=== PATIENT | male | born 1995 | race Caucasian/White ===

== ENCOUNTER 2018-04-23 12:34 | Emergency (ER) | payer OTHER ==
[2018-04-23 12:37] VITALS: BP 138/88
[2018-04-23] MEDS ORDERED: LET GEL TOPICAL 1 EA SYR TP ONE (12:40)
[2018-04-23] MEDS ORDERED: SKIN ADHESIVE (DERMABOND) 1 EACH TP ONE (13:16)
--- NOTE | 2018-04-23 13:17 | EDPHY ---
General Time Seen by Provider: 04/23/18 12:40 Narrative: CLINICAL IMPRESSION: Left upper eyelid laceration ASSESSMENT/PLAN: 23-year-old incarcerated male presents to the emergency department with [place] [employer] after he was playing basketball at correction and another player's head impacted his right upper eyelid. He had no loss of consciousness. No clinical signs of open globe injury, hyphema, orbital blowout fracture, or subconjunctival hemorrhage. Patient has a small laceration to the right upper eyelid be low the brow line. He has requested skin glue for this which was applied. Tetanus reported as up-to-date. Wound care discussed, signs and symptoms of infection reviewed, warning signs return to ED sooner alignment discharge. DIFFERENTIAL DIAGNOSIS: includes but not limited to laceration of tendon or vascular structure, underlying fracture, laceration with retained FB ED PROCECURES: Laceration Repair Verbal consent obtained by patient. Risks discussed, including but not limited to infection, pain, retained foreign body, need for additional repair, poor cosmetic result, tendon damage, nerve damage, poor wound healing, vascular damage. Alternatives to repair discussed. [place] protocol used to establish correct patient, procedure, equipment, system support analyst, and site. Anesthesia obtained by topical application. Anesthetized with let. Laceration location right upper eyelid, length 1 cm, depth 2 mm, Repair type simple. Patient was prepped and draped in usual sterile fashion. Hemostasis achieved with direct pressure. Wound explored through full range of motion and entire depth of wound probed and visualized with gloved finger. No suspicion for nerve damage, tendon damage, underlying fracture, vascular damage, foreign body, or contamination. Area was cleansed with Shur-Clens and irrigated with sterile saline as per protocol. No foreign body or material removed. Repair method skin glue. Well aligned, closely approximated. wound was dressed with Band-Aid. Patient tolerated well with no immediate complications. Wound care: Clean and dry x 24 hours, gently clean with soap and water, cover with topical antibiotic ointment/bandage. CHIEF COMPLAINT: Laceration HPI: 23-year-old incarcerated male presents to the emergency department with [employer] for evaluation of a laceration to the right upper eyelid. Patient reports he was playing basketball today when another player's head impacted his right upper eyelid. He had no loss of consciousness, denies headache, dizziness , vertigo, vision changes, neck pain, upper extremity weakness or tingling. He reports tetanus is up-to-date. He was not given anything prior to arrival. PAST MEDICAL HISTORY: None reported Pertinent Past Surgical History: None reported Social History: Currently incarcerated REVIEW OF SYSTEMS: All other systems negative Constitutional: No fever, no chills Musculoskeletal: No deformity, no joint pain Skin: Laceration to right upper eyelid Neurological: No sensory loss or weakness, 2 point discrimination intact. PHYSICAL EXAM: General Appearance: Alert, oriented, appropriate for age, cooperative, NAD, well hydrated, non-toxic appearing, VSS, no hypoxia. Neurological: Alert and oriented x 3 Eye: No evidence of hyphema, open globe injury, subconjunctival hemorrhage. EOMs intact bilaterally. PERRLA. Skin: 1 cm horizontally oriented laceration to right upper eyelid just below brow line Musculoskeletal: Full range of motion of the neck with no midline pain. No upper extremity radiculopathy. MEDICAL DECISION MAKING: Patient was seen independently. Secondary supervising physician at time of evaluation was Dr. Paige. Diagnosis: Right upper eyelid laceration. New, requires workup Summary: See assessment and plan for summary of ED visit Patient Progress improved. - History Smoking Status: Current every day smoker - Objective Vital Signs: Initial Vital Signs Temperature (C) 36.6 C 04/23/18 12:36 Heart Rate 55 L 04/23/18 12:36 Respiratory Rate 16 04/23/18 12:36 Blood Pressure 138/88 H 04/23/18 12:36 O2 Sat (%) 98 04/23/18 12:36 O2 Delivery Mode Room Air Allergies/Adverse Reactions: No Known Allergies Allergy (Unverified 04/23/18 12:36) Home Medications: Medication Instructions Recorded NK [No Known Home Meds] 04/23/18 Medications Given: Discontinued Medications Tetracaine/Epinephrine/Lidocaine (Let Gel Topical) 1 ea TP EDNOW ONE Stop: 04/23/18 12:41 Last Admin: 04/23/18 12:52 Dose: 1 ea Departure - Departure Disposition: Home, Routine, Self-Care Clinical Impression: Laceration of eyebrow Condition: Good Instructions: Laceration (ED) Additional Instructions: DISCHARGE INSTRUCTIONS FROM YOUR DOCTOR Thank you for visiting our emergency department today. Please keep in mind that discharge from the emergency department does not mean that there is nothing wrong - it simply means that we have not identified an emergency condition that requires further evaluation or treatment in the hospital. You should always plan to follow up with primary care for re-evaluation of your condition in the next 2-3 days. If you have been referred to a specialist, please call as soon as possible (today or tomorrow) to schedule your follow up appointment at the appropriate time. You had skin glue placed. This will gradually fall off on its own. Avoid picking at off. Keep wound clean and dry, cover with a Band-Aid. Return to emergency department for redness, swelling, discharge, warmth to the skin, or any other concerns for infection. People present with illnesses and injuries in different ways, and it is always possible that we have missed something. You may always return for re-evaluation if symptoms worsen or if they are not improving or if you develop new/different symptoms. Again, thank you for choosing our emergency department. We hope that you feel better. Referrals: NONE *PRIMARY CARE P,. [Primary Care Provider] - As per Instructions [facility],. [Clinic] - As per Instructions
== END 2018-04-23 13:29 | disposition home or self-care (01) ==
LOC: EEVIPCON 12:34
PROC: 08QPXZZ Repair Left Upper Eyelid, External Approach (ICD-10-PCS; principal; 2018-04-23)
DX: S01.112A Laceration without foreign body of left eyelid and periocular area, initial encounter (principal); W50.0XXA Accidental hit or strike by another person, initial encounter; Y92.149 Unspecified place in prison as the place of occurrence of the external cause; Y99.9 Unspecified external cause status; Y93.67 Activity, basketball